=== PATIENT | male | born 1965 | race Caucasian/White ===

== ENCOUNTER 2024-02-24 08:41 | Day surgery (SDC) | payer OTHER, SELFPAY ==
[2024-01-15 15:15] VITALS: BMI 32.7
[2024-02-15 09:32] VITALS: BMI 32.5
[2024-02-24 09:20] VITALS: BP 136/96; PULSE 75; RESP 16; TEMP 36.7; O2SAT 99
[2024-02-24] MEDS: LACTATED RINGERS 1,000 ML 150 ML IV CONT (09:26)
--- NOTE | 2024-02-24 10:04 | WPDANESEPPF ---
Anes - Initial Pre Proc Eval Procedure: Operation Date: 02/24/24 10:30 Proposed Procedures p Esophagogastroduodenoscopy - Giovanni Hoyt MD s Screening Colonoscopy - Giovanni Hoyt MD Date/Time: 02/24/24 10:04 Surgeon: Giovanni Hoyt MD Pre Op Diagnosis: Gerd w/o Esophagitis, Neoplasm Screening Patient Data Age: 58 Gender: M Height: 1.88 m Weight: 111.5 kg Last Vital Signs Temp 36.7 C 02/24/24 09:20 Pulse 75 02/24/24 09:20 Resp 16 02/24/24 09:20 BP 136/96 H 02/24/24 09:20 Pulse Ox 99 02/24/24 09:20 O2 Del Method Room Air 02/24/24 09:20 Allergies Allergy/AdvReac Type Severity Reaction Status Date / Time No Known Allergies Allergy Verified 02/24/24 09:17 Home Medications Medication Instructions Recorded Confirmed Type sildenafil 100 mg tablet 100 mg PO DAILY PRN sexual 01/06/24 02/24/24 Rx activity #6 tabs amlodipine 5 mg tablet 5 mg PO DAILY 02/24/24 02/24/24 History diclofenac sodium 75 mg 75 mg PO BID 02/24/24 02/24/24 History tablet,delayed release lisinopril 40 mg tablet 40 mg PO DAILY 02/24/24 02/24/24 History pantoprazole 40 mg tablet,delayed 40 mg PO BID 02/24/24 02/24/24 History release rosuvastatin 40 mg tablet 40 mg PO DAILY 02/24/24 02/24/24 History Patient hx anesthesia problems: none Family hx anesthesia problems: none Results Review: All pre-operative results and documents have been reviewed as part of the pre-operative evaluation. [facility] Past Medical History Medical History Essential (primary) hypertension (~05/2020) Gastro-esophageal reflux disease without esophagitis Impacted cerumen, right ear Normal colonoscopy 03/07 Repeat 03/17 Pure hypercholesterolemia, unspecified Surgical History Surgical History Hx of vasectomy Family History Family History Mother Cerebrovascular accident CKD (chronic kidney disease) Dementia Breast cancer Sibling Stomach cancer Social History Social History Smoking status: Never smoker Second hand tobacco smoke exposure: No Alcohol intake: current Drinks per week: 6 Substance use: never Substance use type: does not use Lack of Transportation: No Lack of Food: Never True Current Housing: I Have Housing Concerned About Future Housing: No Difficulty Paying Gas/Electric Bills: No Difficulty Paying for Meds: No Currently Unemployed: No Education: High School Diploma/GED Difficulty w/ Childcare or Family Care: No Living arrangements: with family Occupation/Education: occupation Gender identity (if verbalized by the patient): Male Spiritual care concerns: No Anes - Eval Final PreProcedure Day of Procedure 02/24/24 10:04 Patient weight: obese Heart: regular rate and rhythm Lungs: clear to auscultation Airway: Mallampati scale class II Neurological: alert and oriented Last oral intake: >/= 8 hours ASA classification: III Emergent: no Anesthetic plan: proceed Anesthesia type and monitoring: general GIVS Results Review: All pre-operative results and documents have been reviewed as part of the pre-operative evaluation. Informed Consent: The patient's anesthetic plan and its attendant risks and benefits were discussed with the patient/family/POA. Questions were solicited and answers provided to the satisfaction of the patient/family/POA.
--- NOTE | 2024-02-24 10:05 | PM.HPGS ---
History of Present Illness History of Present Illness Consent: Risks, benefits, and alternatives have been discussed and questions answered. Patient agrees to proceed with procedure. Chief complaint: Gerd w/o Esophagitis, Neoplasm Screening Narrative: Loy Moctezuma is a 58 year old male presents for EGD and colonoscopy. Patient reports a long history of intermittent regurgitation. He States at night every month or so will have regurgitation. HE States this is uncomfortable in very better tasting. He occasionally complain of heartburn. Denies any bleeding or weight loss. He has no dysphagia. Patient also desires neoplasia screening colonoscopy. His weight appetite and bowel movements are normal. He denies any blood loss. Family history noncontributory. Review of Systems Review of Systems: All systems reviewed & are unremarkable except as noted in HPI and below PMFSH Past Medical History Medical History Essential (primary) hypertension (~05/2020) Gastro-esophageal reflux disease without esophagitis Impacted cerumen, right ear Normal colonoscopy 03/07 Repeat 03/17 Pure hypercholesterolemia, unspecified Surgical History Surgical History Hx of vasectomy Family History Family History Mother Cerebrovascular accident CKD (chronic kidney disease) Dementia Breast cancer Sibling Stomach cancer Social History Social History Smoking status: Never smoker Second hand tobacco smoke exposure: No Alcohol intake: current Drinks per week: 6 Substance use: never Substance use type: does not use Lack of Transportation: No Lack of Food: Never True Current Housing: I Have Housing Concerned About Future Housing: No Difficulty Paying Gas/Electric Bills: No Difficulty Paying for Meds: No Currently Unemployed: No Education: High School Diploma/GED Difficulty w/ Childcare or Family Care: No Living arrangements: with family Occupation/Education: occupation Gender identity (if verbalized by the patient): Male Spiritual care concerns: No Meds Home Medications and Allergies Home Medications Medication Instructions Recorded Confirmed Type sildenafil 100 mg tablet 100 mg PO DAILY PRN sexual 01/06/24 02/24/24 Rx activity #6 tabs amlodipine 5 mg tablet 5 mg PO DAILY 02/24/24 02/24/24 History diclofenac sodium 75 mg 75 mg PO BID 02/24/24 02/24/24 History tablet,delayed release lisinopril 40 mg tablet 40 mg PO DAILY 02/24/24 02/24/24 History pantoprazole 40 mg tablet,delayed 40 mg PO BID 02/24/24 02/24/24 History release rosuvastatin 40 mg tablet 40 mg PO DAILY 02/24/24 02/24/24 History Allergies Allergy/AdvReac Type Severity Reaction Status Date / Time No Known Allergies Allergy Verified 02/24/24 09:17 Vital Signs Vital Signs - 24 hr 02/24/24 09:20 Temperature 98.1 F Pulse Rate 75 Respiratory Rate 16 Blood Pressure 136/96 H Pulse Oximetry 99 Oxygen Delivery Room Air Exam Narrative: Physical exam reveals patient to be alert. Vital signs stable. HEENT exam is unremarkable. Patient is anicteric. Is are clear to auscultation and percussion. His without murmur or extra sounds. Abdomen bowel sounds are present soft nontender with no organomegaly. Digital external rectal exam is normal. Assessment and Plan Assessment and plan (1) Gastro-esophageal reflux disease without esophagitis: Code(s): K21.9 - Gastro-esophageal reflux disease without esophagitis Status: Acute Assessment and Plan: Patient with acid reflux. Currently poorly responsive to pantoprazole 40mg p.o. once daily. Assisted to assess more thoroughly. Anti-reflux measures including elevating bed at night or reiterated to patient . Further recommendations
[2024-02-24 11:37] VITALS: BP 116/86; PULSE 80; RESP 16; O2SAT 98
[2024-02-24 11:47] VITALS: BP 144/96; PULSE 70; RESP 15; O2SAT 94
[2024-02-24 11:57] VITALS: BP 132/93; PULSE 71; RESP 16; O2SAT 100
--- NOTE | 2024-02-24 14:01 | WPDANESPN ---
Anes - Prog Note Post-Op Date/Time: 02/24/24 14:01 Cardiovascular status: normal Respiratory status: normal Airway patency: baseline Mental status: baseline Post-Op hydration status: normal Vital Signs: Last Vital Signs Temp 36.7 C 02/24/24 09:20 Pulse 71 02/24/24 11:57 Resp 16 02/24/24 11:57 BP 132/93 H 02/24/24 11:57 Pulse Ox 100 02/24/24 11:57 O2 Del Method Room Air 02/24/24 11:57 Pain Score (VAS): 0 I/O: Intake & Output 02/23/24 02/24/24 02/24/24 23:59 07:59 15:59 Intake Total 600 Balance 600 Post-procedural complaints: none Patient Feedback: Patient satisfied with anesthetic care. Other Findings: Patient vital signs back to baseline. Patient denies nausea and vomiting. Patient's pain under control. Patient OK for discharge.
== END 2024-02-24 12:25 | disposition home or self-care (01) ==
PROVIDERS: PCP Family Medicine Adolescent Medicine; Visit Provider Internal Medicine Gastroenterology
PROC: 0DJ08ZZ Inspection of Upper Intestinal Tract, Via Natural or Artificial Opening Endoscopic (ICD-10-PCS; CPT 43235; principal; 2024-02-24 10:30)
PROC: 0DJD8ZZ Inspection of Lower Intestinal Tract, Via Natural or Artificial Opening Endoscopic (ICD-10-PCS; CPT 45378; 2024-02-24 10:30)
DX: Z12.11 Encounter for screening for malignant neoplasm of colon (principal); K21.9 Gastro-esophageal reflux disease without esophagitis; K64.8 Other hemorrhoids; K22.2 Esophageal obstruction
CPT/HCPCS: 45378; 43450

== ENCOUNTER 2024-03-13 17:54 | Emergency (ER) | payer OTHER, SELFPAY ==
--- NOTE | ~2024-03-13 | CT_ITS ---
CT abdomen pelvis w con Ordering provider: Sera Otero History: 58 years Male with . LLQ pain . Comparison: None. Technique: CT abdomen and pelvis with IV and without oral contrast. Automated exposure control and it erative reconstruction technique were employed. The dose-length product was 1064.68 mGy-cm. 100 mL Om nipaque 350 was given IV. Findings: VISUALIZED LOWER CHEST: Dependent atelectatic changes. UPPER ABDOMINAL ORGANS: Liver: Fat infiltration. Hepatomegaly. Gallbladder: Normal. Spleen: Normal. Stomach/duodenum: Normal. Pancreas: Normal. Adrenals: Normal. Kidneys: Cysts measuring 1.2 cm in the medial aspect of the left kidney midpole. Tiny cyst in the rig ht kidney mid and upper pole. Parapelvic cyst is seen in the right kidney. PELVIC ORGANS: The bladder is underfilled with thickened wall. Enlarged prostate. BOWEL AND MESENTERY: Colon: Thickened wall of the descending colon with surrounding fat stranding which may be inflammator y or ischemic. No collection seen around the colon. No free air. Normal appendix. Small Bowel: Normal. No obstruction. Peritoneum/mesentery: No free air or free fluid. No mesenteric lymphadenopathy. RETROPERITONEUM: Normal aorta. No retroperitoneal lymphadenopathy. MUSCULOSKELETAL: Superficial soft tissues: A fat-containing umbilical hernia. The superficial soft tissues are normal. Bones: Age appropriate degenerative changes of the spine. Bilateral sacroiliacs. IMPRESSION: 1. Thickened edematous wall of the descending colon with surrounding fat stranding suggestive of col itis versus ischemia. Clinical correlation and follow-up advised. 2. Hepatomegaly with fat infiltration. 3. Small fat-containing umbilical. Reviewed, dictated and finalized at location A. IMPRESSION: 1. Thickened edematous wall of the descending colon with surrounding fat stran ding suggestive of colitis versus ischemia. Clinical correlation and follow-up advised. 2. Hepatomegaly with fat infiltration. 3. Small fat-containing umbilical.
[2024-03-13 18:17] VITALS: BP 160/87; PULSE 86; RESP 20; TEMP 36.4; O2SAT 98
[2024-03-13 19:07] LABS: Basophils Absolute Auto 0.1 K/mm3 (0.0-0.1); Basophils Percent Auto 0.3 % (0.2-1.2); Eosinophils Percent Auto 0.1 % (0-4.4); Hematocrit 46.2 % (42.0-52.0); Hemoglobin 16.1 g/dL (14.0-18.0); Immature Granulocyte Absolute 0.02 K/mm3 (0.00-0.031); Immature Granulocyte Percent A 0.1 % (0-0.5); Lymphocytes Absolute Auto 1.48 K/mm3 (0.9-3.2); Lymphocytes Percent Auto 9.7 % (18.3-44.2); Mean Corpuscular HGB Conc 34.8 g/dl (32-36); Mean Corpuscular Hemoglobin 30.4 pg (26-34); Mean Corpuscular Volume 87.2 fl (80-100); Mean Platelet Volume 11.3 fl (7.4-10.4); Monocytes Absolute Auto 1.1 K/mm3 (0.1-0.6); Monocytes Percent Auto 7.1 % (2.6-8.5); Neutrophils Absolute Auto 12.6 K/mm3 (1.3-6.7); Neutrophils Percent Auto 82.7 % (45.5-73.1); Platelet Count Result 239 k/mm3 (150-375); Red Cell Distribution Width 13.7 % (11.5-14.5); White Blood Count 15.2 K/mm3 (4.5-10.0)
[2024-03-13 19:18] LABS: Alanine Aminotransferase 59 U/L (6-50); Albumin Level 4.9 g/dL (3.5-5.1); Alkaline Phosphatase 77 U/L (38-126); Anion Gap 10 mmol/L (4-12); Aspartate Amino Transferase 38 U/L (17-59); Blood Urea Nitrogen 22 mg/dL (9-20); Calcium 9.8 mg/dL (8.4-10.2); Carbon Dioxide 27 mmol/L (22-30); Chloride 103 mmol/L (98-107); Estimated CRCL calculation 102 ml/min; Estimated Glomerular Filt Rate > 60; Glucose 112 mg/dL (65-110); Partial Thromboplastin Time 25.3 Seconds (22.3-36.8); Potassium 4.1 mmol/L (3.4-5.0); Prothrombin Time 13.4 Seconds (11.1-14.7); Sodium 140 mmol/L (137-145)
[2024-03-13 19:45] VITALS: BP 147/92; PULSE 81; RESP 15; TEMP 36.6; O2SAT 97
--- NOTE | 2024-03-13 19:45 | ED.GENADULT ---
HPI - General Adult General Chief complaint: GI Bleed Stated complaint: bloody stool Time Seen by Provider: 03/13/24 19:05 History of Present Illness HPI narrative: Patient is a 58-year-old male who presents to the emergency department this evening complaining of bright red blood per rectum starting this morning. Patient states that 3 weeks ago he had a colonoscopy performed by Dr. Hoyt states that it was normal. Patient has been having some abdominal bloating and states that all day today he has been having some diarrheal illness. Denies any sharp abdominal pain. Denies any history of diverticulitis. Denies any fevers or chills at home, any nausea or vomiting. No additional symptoms or concerns at this time. Related Data Home Medications Medication Instructions Recorded Confirmed amlodipine 5 mg tablet 5 mg PO DAILY 02/24/24 02/24/24 diclofenac sodium 75 mg 75 mg PO BID 02/24/24 02/24/24 tablet,delayed release lisinopril 40 mg tablet 40 mg PO DAILY 02/24/24 02/24/24 pantoprazole 40 mg tablet,delayed 40 mg PO BID 02/24/24 02/24/24 release rosuvastatin 40 mg tablet 40 mg PO DAILY 02/24/24 02/24/24 Allergies Allergy/AdvReac Type Severity Reaction Status Date / Time No Known Allergies Allergy Verified 02/24/24 09:17 Review of Systems Review of Systems: All systems are reviewed and are negative unless stated otherwise in the HPI. [facility] Past Medical History Medical History Essential (primary) hypertension (~05/2020) Gastro-esophageal reflux disease without esophagitis Impacted cerumen, right ear Normal colonoscopy 03/07 Repeat 03/17 Pure hypercholesterolemia, unspecified Surgical History Surgical History Hx of vasectomy Family History Family History Mother Cerebrovascular accident CKD (chronic kidney disease) Dementia Breast cancer Sibling Stomach cancer Social History Social History Smoking status: Never smoker Second hand tobacco smoke exposure: No Alcohol intake: current Drinks per week: 6 Substance use: never Substance use type: does not use Lack of Transportation: No Lack of Food: Never True Current Housing: I Have Housing Concerned About Future Housing: No Difficulty Paying Gas/Electric Bills: No Difficulty Paying for Meds: No Currently Unemployed: No Education: High School Diploma/GED Difficulty w/ Childcare or Family Care: No Living arrangements: with family Occupation/Education: occupation Gender identity (if verbalized by the patient): Male Spiritual care concerns: No Exam Narrative: General: Alert, awake, afebrile, in no acute distress. HEENT: PERRL, no rhinorrhea, no post nasal drip, oropharynx clear. Cardiovascular: Regular rate and rhythm, no murmurs, rubs or gallops, no peripheral edema. Respiratory: Clear to auscultation bilaterally, no tachypnea, no wheezing, no rhonchi, no rubs, no respiratory distress. Abdomen: Soft, mild tenderness to palpation over the bilateral lower quadrants, nondistended, no rebound, no guarding, no peritoneal signs. Musculoskeletal: No joint swelling or deformity, normal muscle tone. Skin: No rashes or petechia, no signs of infection. Neurological: Alert and oriented to person, place, and time. Follows all commands. No focal deficits, speech is clear and fluent. Course Vital Signs Vital signs: Vital Signs Temperature 97.6 F 03/13/24 18:17 Pulse Rate 86 03/13/24 18:17 Respiratory Rate 20 03/13/24 18:17 Blood Pressure 160/87 H 03/13/24 18:17 Pulse Oximetry 98 03/13/24 18:17 Oxygen Delivery Room Air 03/13/24 18:17 Temperature 97.9 F 03/13/24 19:45 Pulse Rate 88 03/13/24 21:17 Respiratory Rate 16 03/13/24 21:17 Blood Pressure 156/97 H 1
[2024-03-13 20:00] VITALS: BP 155/97; PULSE 82; RESP 18; O2SAT 98
[2024-03-13 21:17] VITALS: BP 156/97; PULSE 88; RESP 16; O2SAT 96
[2024-03-13 21:17] LABS: Lactic Acid Reflex 1.6 mmol/L (0.7-2.0)
--- NOTE | 2024-03-13 21:19 | PC.NURSE ---
pt ambulatory with steady gait to restroom. Pt moved from ed room 1 to ed room 2 at this time. no distress noted.
--- NOTE | 2024-03-13 21:44 | PC.NURSE ---
shelby ott at bedside for rectal exam. Unremarkable - will dc home
== END 2024-03-13 21:41 | disposition home or self-care (01) ==
PROVIDERS: Emergency Medicine; Emergency Provider Emergency Medicine; PCP Family Medicine Adolescent Medicine
DX: K64.8 Other hemorrhoids (principal); K62.5 Hemorrhage of anus and rectum; I10 Essential (primary) hypertension; E78.00 Pure hypercholesterolemia, unspecified; K21.9 Gastro-esophageal reflux disease without esophagitis; Z79.899 Other long term (current) drug therapy; K76.0 Fatty (change of) liver, not elsewhere classified; K42.9 Umbilical hernia without obstruction or gangrene
CPT/HCPCS: 36415; 74177; 80053; 83605; 85025; 85610; 85730; 86850; 86900; 86901; 99284; Q9967